=== PATIENT | male | born 1990 | race Caucasian/White ===

== ENCOUNTER 2017-08-26 21:25 | Emergency (ER) | payer SELFPAY ==
[2017-08-26 21:31] VITALS: RESP 18
--- NOTE | 2017-08-26 22:50 | ED ---
Chest Pain HPI - General Chief Complaint: Chest Pain Stated Complaint: Chest Pain Time Seen by Provider: 08/26/17 22:02 Source: patient, family Mode of arrival: ambulatory Limitations: no limitations - History of Present Illness Initial Comments: This patient is a 27-year-old man who states that Sunday in the afternoon he had the onset of pain in the left side of his chest. 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 The patient denied any inciting injury. 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 The patient describes it as a shooting pain. It was moderate to severe, though it has decreased to mild now. The patient denies any associated symptoms. He has not noted any worsening or relieving factors. MD Complaint: chest pain Onset/Timin -: days(s) Onset: other (While driving) Pain Location: left chest Pain Radiation: none Severity: moderate Quality: other Consistency: constant Improves With: nothing Worsens With: nothing Treatments Prior to Arrival: none - Related Data Home Medications Medication Instructions Recorded Confirmed No Known Home Medications [No 08/26/17 08/26/17 Known Home Medications] Allergies Allergy/AdvReac Type Severity Reaction Status Date / Time No Known Allergies Allergy Verified 08/26/17 22:19 Review of Systems ROS Statement: Those systems with pertinent positive or pertinent negative responses have been documented in the HPI. ROS Other: All systems not noted in ROS Statement are negative. Constitutional: Denies: fever, chills Respiratory: Denies: cough, dyspnea Cardiovascular: Reports: chest pain. Denies: palpitations, dyspnea on exertion , edema, syncope Gastrointestinal: Denies: abdominal pain, nausea, vomiting Musculoskeletal: Denies: back pain Skin: Denies: rash Neurological: Denies: headache, weakness, numbness EKG Findings - EKG Results: EKG: interpreted by ERMD, sinus rhythm, normal axis, normal QRS, normal ST/T EKG shows: bradycardia (Rate approximately 57 bpm) - PR, Pacemaker, Normal: Normal tracing: normal tracing Past Medical History Past Medical History: No Reported History History of Any Multi-Drug Resistant Organisms: None Reported Past Surgical History: No Surgical Hx Reported Past Psychological History: No Psychological Hx Reported Smoking Status: Never smoker Past Alcohol Use History: Occasional Past Drug Use History: None Reported General Exam Limitations: no limitations General appearance: alert, in no apparent distress Head exam: Present: atraumatic, normocephalic Eye exam: Present: normal appearance. Absent: scleral icterus, conjunctival injection ENT exam: Present: normal oropharynx Neck exam: Present: normal inspection, full ROM Respiratory exam: Present: normal lung sounds bilaterally, chest wall tenderness. Absent: respiratory distress, wheezes, rales, rhonchi, stridor Cardiovascular Exam: Present: regular rate, normal rhythm, normal heart sounds. Absent: systolic murmur, diastolic murmur, rubs, gallop GI/Abdominal exam: Present: soft. Absent: distended, tenderness, guarding, rebound, mass Extremities exam: Present: normal inspection, normal capillary refill. Absent: pedal edema, calf tenderness Back exam: Absent: CVA tenderness (R), CVA tenderness (L), vertebral tenderness Neurological exam: Present: alert Skin exam: Present: warm, dry, intact, normal color. Absent: rash Course Vital Signs 08/26/17 08/26/17 21:28 22:41 Temperature 97.6 F Pulse Rate 54 L 70 Respiratory 18 18 Rate Blood Pressure 134/84 133/75 O2 Sat by Pulse 99 98 Oximetry Disposition Clinical Impression: Chest wall pain Disposition: HOME SELF-CARE Condition: Good Instructions: Chest Pain (ED) Referrals: None,Stated [Primary Care Provider] - 1-2 days
[2017-08-26 23:04] LABS: Basophils # (A) 0.1 k/uL (0-0.2); Basophils % (A) 1 %; CH 29.9; CHCM 33.9; Eosinophils # (A) 0.2 k/uL (0-0.7); Eosinophils % (A) 2 %; HCT 44.6 % (39.0-53.0); HDW 2.62; HGB 15.3 gm/dL (13.0-17.5); Luc % (Auto) 4; Lymphocytes # (A) 2.7 k/uL (1.0-4.8); Lymphocytes % (A) 32 %; MCH 30.4 pg (25.0-35.0); MCHC 34.3 g/dL (31.0-37.0); MCV 88.7 fL (80.0-100.0); Mean Platelet Volume 7.9; Monocytes # (A) 0.4 k/uL (0-1.0); Monocytes % (A) 5 %; Neutrophils # (A) 4.8 k/uL (1.3-7.7); Neutrophils % (A) 57 %; RBC 5.03 m/uL (4.30-5.90); RDW 12.3 % (11.5-15.5); WBC 8.4 k/uL (3.8-10.6); WBC (Perox) 8.41
[2017-08-26 23:19] LABS: ALT 36 U/L (21-72); AST 22 U/L (17-59); Alkaline Phosphatase 68 U/L (38-126); Anion Gap 13 mmol/L; Blood Urea Nitrogen 19 mg/dL (9-20); Calcium 9.4 mg/dL (8.4-10.2); Carbon Dioxide 23 mmol/L (22-30); Chloride 107 mmol/L (98-107); Glucose 97 mg/dL (74-99); Magnesium 1.8 mg/dL (1.6-2.3); Non-African American GFR(MDRD) >60 (>60 ml/min/1.73 sqM); Potassium 4.5 mmol/L (3.5-5.1); Sodium 143 mmol/L (137-145); Total Bilirubin 0.3 mg/dL (0.2-1.3); Total Protein 7.3 g/dL (6.3-8.2)
[2017-08-26 23:23] LABS: INR 1.1 (<1.2); Partial Thromboplastin Time 27.1 sec (22.0-30.0); Prothrombin Time 10.8 sec (9.0-12.0)
--- NOTE | 2017-08-26 23:29 | XR ---
EXAM: XR Chest, 2 Views CLINICAL HISTORY: Chest pain. TECHNIQUE: Frontal and lateral views of the chest. COMPARISON: No relevant prior studies available. FINDINGS: Lungs: No focal consolidation. No evidence of pulmonary edema. Pleural space: No pleural effusion. No pneumothorax. Heart: Unremarkable. No cardiomegaly. Mediastinum: Unremarkable. Bones/joints: Unremarkable. IMPRESSION: No radiographic evidence of acute cardiopulmonary process.
[2017-08-27 00:09] VITALS: BP 124/68; PULSE 78; TEMP 97
== END 2017-08-27 00:08 | disposition home or self-care (01) ==
LOC: EC 21:25
DX: R07.89 Other chest pain (principal)
CPT/HCPCS: 36415; 71020; 80053; 83735; 84484; 85025; 85379; 85610; 85730; 93005; 99285

== ENCOUNTER 2020-11-10 16:50 | Emergency (ER) | payer BC ==
[2020-11-10 17:07] VITALS: RESP 18
--- NOTE | 2020-11-10 17:39 | XR ---
EXAMINATION TYPE: XR ankle complete RT DATE OF EXAM: 11/10/2020 COMPARISON: NONE HISTORY: Ankle pain TECHNIQUE: 3 views FINDINGS: There is mild soft tissue swelling around the ankle joint. I see no fracture nor dislocatio n. Joint spaces are normal. IMPRESSION: Mild soft tissue swelling. No fracture.
--- NOTE | 2020-11-10 17:40 | XR ---
EXAMINATION TYPE: XR foot complete RT DATE OF EXAM: 11/10/2020 COMPARISON: NONE HISTORY: Pain TECHNIQUE: 3 views FINDINGS: Metatarsals are intact. I see no fracture nor dislocation. Joint spaces are normal. There a re no erosions. IMPRESSION: No fracture.
--- NOTE | 2020-11-10 18:30 | ED ---
Lower Extremity Injury HPI - General Chief Complaint: Extremity Injury, Lower Stated Complaint: rt ankle injury Time Seen by Provider: 11/10/20 18:21 Source: patient Mode of arrival: ambulatory Limitations: no limitations - History of Present Illness Initial Comments: 30-year-old male presenting to emergency Department with chief complaint of right ankle pain. Patient reports he injured about 3 weeks ago and has been gradually increasing severity. This report mild swelling but no ecchymosis. Denies any numbness or tingling. States the pain is exacerbated with inhalation. Alleviate at rest. - Related Data Home Medications Medication Instructions Recorded Confirmed No Known Home Medications 08/26/17 09/22/17 Allergies Allergy/AdvReac Type Severity Reaction Status Date / Time No Known Allergies Allergy Verified 11/10/20 17:04 Review of Systems ROS Statement: Those systems with pertinent positive or pertinent negative responses have been documented in the HPI. ROS Other: All systems not noted in ROS Statement are negative. Past Medical History Past Medical History: No Reported History History of Any Multi-Drug Resistant Organisms: None Reported Past Surgical History: No Surgical Hx Reported Past Psychological History: No Psychological Hx Reported Smoking Status: Never smoker Past Alcohol Use History: Occasional Past Drug Use History: None Reported General Exam Limitations: no limitations General appearance: alert, in no apparent distress, obese Head exam: Present: atraumatic, normocephalic, normal inspection Eye exam: Present: normal appearance, PERRL, EOMI Pupils: Present: normal accommodation ENT exam: Present: normal exam, normal oropharynx, mucous membranes moist, TM's normal bilaterally, normal external ear exam Neck exam: Present: normal inspection, full ROM. Absent: lymphadenopathy Respiratory exam: Present: normal lung sounds bilaterally Cardiovascular Exam: Present: regular rate, normal rhythm, normal heart sounds GI/Abdominal exam: Present: soft. Absent: distended, tenderness Extremities exam: Present: normal inspection (Mild swelling on the right ankle), full ROM, tenderness (Lateral malleoli tenderness), normal capillary refill, other (+2 dorsalis pedis and posterior tibialis laterally.). Absent: pedal edema, joint swelling, calf tenderness Back exam: Present: normal inspection, full ROM Neurological exam: Present: alert, oriented X3 Psychiatric exam: Present: normal affect, normal mood Skin exam: Present: warm, dry, intact, normal color Course Vital Signs 11/10/20 17:06 Temperature 98.2 F Pulse Rate 82 Respiratory 18 Rate Blood Pressure 126/75 O2 Sat by Pulse 97 Oximetry Procedures - Orthopedic Splinting/Casting Injury #1 Side: right Upper Extremity Immobilizer: Facundo wrap Lower Extremity Injury Location: ankle Medical Decision Making - Medical Decision Making 30-year-old male presenting to the emergency department with a chief complaint right ankle pain. Physical examination is unremarkable except for mild swelling along the lateral malleoli along with some tenderness there. No ecchymosis. Neurovascularly intact. X-rays of foot and ankle are negative. Patient was advised to rest, ice, compress and elevate. He will be in contact information for email marketing specialist. Return parameters discussed. Case discussed physician. Disposition Clinical Impression: Right ankle sprain Disposition: HOME SELF-CARE Condition: Stable Instructions (If sedation given, give patient instructions): Ankle Sprain (ED) Additional Instructions: Follow-up with email marketing specialist. Return to emergency department if symptoms worsen. Is patient prescribed a controlled substance at d/c from ED?: No Referrals: None,Stated [Primary Care Provider] - 1-2 days Jayden Lang DO [Doctor of Osteopathic Medicine] - 1-2 days Time of Disposition: 18:29
[2020-11-10 18:48] VITALS: BP 132/65; PULSE 77; TEMP 98.1
== END 2020-11-10 18:35 | disposition home or self-care (01) ==
LOC: EC 16:50
DX: S93.401A Sprain of unspecified ligament of right ankle, initial encounter (principal); X58.XXXA Exposure to other specified factors, initial encounter
CPT/HCPCS: 99283

== ENCOUNTER 2022-02-16 12:47 | Emergency (ER) | payer OTHER ==
[2022-02-16] MEDS ORDERED: SODIUM CHLORIDE 0.9% 1,000 ML IV STA (13:15)
[2022-02-16] MEDS ORDERED: MORPHINE SULFATE 2 MG/ML SYRINGE IVP STA (13:15)
--- NOTE | 2022-02-16 13:20 | ED ---
General Adult HPI - General Chief complaint: Abdominal Pain Stated complaint: abd pain/back pain Time Seen by Provider: 02/16/22 13:10 Source: patient, RN notes reviewed, old records reviewed Mode of arrival: ambulatory Limitations: no limitations - History of Present Illness Initial comments: Well-appearing 31-year-old male presents ambulatory with complaints of cramping abdominal pain that started yesterday. States he did have normal bowel movement yesterday. Denies any nausea vomiting diarrhea or fevers. States today pain came back and was sharp in nature and has not been able to get comfortable since. He denies dysuria or penile discharge. No medical history, no medicines on a daily basis and he is a nonsmoker. -: days(s) (2) Location: abdomen Radiation: periumbilical Severity scale (1-10): 7 Quality: sharp Consistency: intermittent Improves with: none Worsens with: other (palpation) Associated Symptoms: denies other symptoms - Related Data Previous Rx's Medication Instructions Recorded Amoxicillin/Potassium Clav 1 tab PO Q12HR #20 tab 02/16/22 [Augmentin 875-125 Tablet] Allergies Allergy/AdvReac Type Severity Reaction Status Date / Time No Known Allergies Allergy Verified 02/16/22 14:17 Review of Systems ROS Statement: Those systems with pertinent positive or pertinent negative responses have been documented in the HPI. ROS Other: All systems not noted in ROS Statement are negative. Past Medical History Past Medical History: No Reported History History of Any Multi-Drug Resistant Organisms: None Reported Past Surgical History: No Surgical Hx Reported Past Psychological History: No Psychological Hx Reported Smoking Status: Never smoker Past Alcohol Use History: Occasional Past Drug Use History: None Reported General Exam Limitations: no limitations General appearance: alert, in no apparent distress Head exam: Present: atraumatic, normocephalic, normal inspection Eye exam: Present: normal appearance Neck exam: Present: normal inspection, full ROM Respiratory exam: Present: normal lung sounds bilaterally. Absent: respiratory distress, wheezes, rales, rhonchi, stridor, chest wall tenderness, accessory muscle use Cardiovascular Exam: Present: regular rate, normal rhythm. Absent: JVD GI/Abdominal exam: Present: soft, tenderness (periumbilical), normal bowel sounds. Absent: distended, guarding, rebound, rigid Extremities exam: Present: normal capillary refill. Absent: pedal edema Back exam: Present: normal inspection, full ROM. Absent: tenderness, CVA tenderness (R), CVA tenderness (L), rash noted Neurological exam: Present: alert, oriented X3, normal gait Psychiatric exam: Present: normal affect, normal mood Skin exam: Present: warm, dry, intact, normal color. Absent: cyanosis, diapho retic, pallor Course Vital Signs 02/16/22 02/16/22 13:03 16:37 Temperature 97.8 F 98 F Pulse Rate 74 80 Respiratory 20 18 Rate Blood Pressure 124/82 134/78 O2 Sat by Pulse 99 98 Oximetry Medical Decision Making - Medical Decision Making 31-year-old male presents with complaints of abdominal pain that started yesterday. Denies any nausea vomiting diarrhea or fevers. White blood cell count 10.5 hemoglobin and hematocrit are stable and electrolytes are unremarkable, urinalysis is clear. CT shows acute diverticulitis involving most proximal portion of the sigmoid colon. There is no definitive abscess. There is bilateral fat-containing inguinal hernias with a small fat-containing umbilical hernia. Case discussed with Dr Berrios. Patient will be discharged on Augmentin for diverticulitis and directed to follow up with his primary care doctor. He was also informed of his umbilical and bilateral inguinal hernias which he can discuss continuation of care with his primary care doctor. Instructed to return to the emergency room with any new or concerning symptoms including increased pain, persistent nausea and vomiting or inability to pass rectal gas. - Lab Data Result diagrams: 02/16/22 13:50 02/16/22 13:50 Lab Results 02/16/22 02/16/22 02/16/22 Range/Units 13:34 13:50 13:50 WBC 10.5 (3.8-10.6) k/uL RBC 5.01 (4.30-5.90) m/uL Hgb 15.4 (13.0-17.5) gm/dL Hct 44.1 (39.0-53.0) % MCV 87.9 (80.0-100.0) fL MCH 30.8 (25.0-35.0) pg MCHC 35.0 (31.0-37.0) g/dL RDW 12.6 (11.5-15.5) % Plt Count 241 (150-450) k/uL MPV 9.1 Neutrophils % 69 % Lymphocytes % 18 % Monocytes % 5 % Eosinophils % 5 % Basophils % 1 % Neutrophils # 7.2 (1.3-7.7) k/uL Lymphocytes # 1.9 (1.0-4.8) k/uL Monocytes # 0.5 (0-1.0) k/uL Eosinophils # 0.5 (0-0.7) k/uL Basophils # 0.1 (0-0.2) k/uL PT 10.9 (9.0-12.0) sec INR 1.0 (<1.2) APTT 26.4 (22.0-30.0) sec Sodium (137-145) mmol/L Potassium (3.5-5.1) mmol/L Chloride (98-107) mmol/L Carbon Dioxide (22-30) mmol/L Anion Gap mmol/L BUN (9-20) mg/dL Creatinine (0.66-1.25) mg/dL Est GFR (CKD-EPI)AfAm (>60 ml/min/1.73 sqM) Est GFR (CKD-EPI)NonAf (>60 ml/min/1.73 sqM) Glucose (74-99) mg/dL Plasma Lactic Acid Erwin (0.7-2.0) mmol/L Calcium (8.4-10.2) mg/dL Total Bilirubin (0.2-1.3) mg/dL AST (17-59) U/L ALT (4-49) U/L Alkaline Phosphatase (38-126) U/L Total Protein (6.3-8.2) g/dL Albumin (3.5-5.0) g/dL Amylase (30-110) U/L Lipase (23-300) U/L Urine Color Light Yellow Urine Appearance Clear (Clear) Urine pH 5.0 (5.0-8.0) Ur Specific Talcott 1.007 (1.001-1.035) Urine Protein Negative (Negative) Urine Glucose (UA) Negative (Negative) Urine Ketones Negative (Negative) Urine Blood Negative (Negative) Urine Nitrite Negative (Negative) Urine Bilirubin Negative (Negative) Urine Urobilinogen <2.0 (<2.0) mg/dL Ur Leukocyte Esterase Negative (Negative) 02/16/22 02/16/22 Range/Units 13:50 13:50 WBC (3.8-10.6) k/uL RBC (4.30-5.90) m/uL Hgb (13.0-17.5) gm/dL Hct (39.0-53.0) % MCV (80.0-100.0) fL MCH (25.0-35.0) pg MCHC (31.0-37.0) g/dL RDW (11.5-15.5) % Plt Count (150-450) k/uL MPV Neutrophils % % Lymphocytes % % Monocytes % % Eosinophils % % Basophils % % Neutrophils # (1.3-7.7) k/uL Lymphocytes # (1.0-4.8) k/uL Monocytes # (0-1.0) k/uL Eosinophils # (0-0.7) k/uL Basophils # (0-0.2) k/uL PT (9.0-12.0) sec INR (<1.2) APTT (22.0-30.0) sec Sodium 136 L (137-145) mmol/L Potassium 4.9 (3.5-5.1) mmol/L Chloride 106 (98-107) mmol/L Carbon Dioxide 20 L (22-30) mmol/L Anion Gap 10 mmol/L BUN 16 (9-20) mg/dL Creatinine 0.71 (0.66-1.25) mg/dL Est GFR (CKD-EPI)AfAm >90 (>60 ml/min/1.73 sqM) Est GFR (CKD-EPI)NonAf >90 (>60 ml/min/1.73 sqM) Glucose 94 (74-99) mg/dL Plasma Lactic Acid Erwin 0.8 (0.7-2.0) mmol/L Calcium 9.0 (8.4-10.2) mg/dL Total Bilirubin 1.2 (0.2-1.3) mg/dL AST 40 (17-59) U/L ALT 30 (4-49) U/L Alkaline Phosphatase 50 (38-126) U/L Total Protein 7.9 (6.3-8.2) g/dL Albumin 4.6 (3.5-5.0) g/dL Amylase 61 (30-110) U/L Lipase 53 (23-300) U/L Urine Color Urine Appearance (Clear) Urine pH (5.0-8.0) Ur Specific Talcott (1.001-1.035) Urine Protein (Negative) Urine Glucose (UA) (Negative) Urine Ketones (Negative) Urine Blood (Negative) Urine Nitrite (Negative) Urine Bilirubin (Negative) Urine Urobilinogen (<2.0) mg/dL Ur Leukocyte Esterase (Negative) Disposition Clinical Impression: Diverticulitis, Umbilical hernia, Inguinal hernia Disposition: HOME SELF-CARE Condition: Good Instructions (If sedation given, give patient instructions): Diverticulitis (ED), Umbilical Hernia (ED) Additional Instructions: Take antibiotics as prescribed and follow-up with the primary care doctor next week. Return to the emergency room with any new or concerning symptoms including increased pain, fevers or persistent nausea and vomiting. Prescriptions: Amoxicillin/Potassium Clav [Augmentin 875-125 Tablet] 1 tab PO Q12HR #20 tab Is patient prescribed a controlled substance at d/c from ED?: No Referrals: None,Stated [Primary Care Provider] - 1-2 days Time of Disposition: 16:10
[2022-02-16 13:46] LABS: Appearance,Urine Clear (Clear); Bilirubin,Urine Negative (Negative); Blood,Urine Negative (Negative); Color,Urine Light Yellow; Glucose,Urine (UA) Negative (Negative); Ketones,Urine Negative (Negative); Leukocyte Esterase,Urine Negative (Negative); Nitrite,Urine Negative (Negative); Protein,Urine Negative (Negative); Specific Gravity,Urine 1.007 (1.001-1.035); Urobilinogen,Urine <2.0 mg/dL (<2.0)
[2022-02-16 14:02] LABS: Basophils # (A) 0.1 k/uL (0-0.2); Basophils % (A) 1 %; Eosinophils # (A) 0.5 k/uL (0-0.7); Eosinophils % (A) 5 %; HCT 44.1 % (39.0-53.0); HGB 15.4 gm/dL (13.0-17.5); Lymphocytes # (A) 1.9 k/uL (1.0-4.8); Lymphocytes % (A) 18 %; MCH 30.8 pg (25.0-35.0); MCV 87.9 fL (80.0-100.0); Mean Platelet Volume 9.1; Monocytes # (A) 0.5 k/uL (0-1.0); Monocytes % (A) 5 %; Neutrophils # (A) 7.2 k/uL (1.3-7.7); Neutrophils % (A) 69 %; Platelet Count 241 k/uL (150-450); RBC 5.01 m/uL (4.30-5.90); RDW 12.6 % (11.5-15.5); WBC 10.5 k/uL (3.8-10.6)
[2022-02-16 14:21] LABS: Partial Thromboplastin Time 26.4 sec (22.0-30.0); Prothrombin Time 10.9 sec (9.0-12.0)
[2022-02-16 14:25] LABS: ALT 30 U/L (4-49); African American GFR (CKD) >90 (>60 ml/min/1.73 sqM); Amylase 61 U/L (30-110); Anion Gap 10 mmol/L; Blood Urea Nitrogen 16 mg/dL (9-20); Carbon Dioxide 20 mmol/L (22-30); Chloride 106 mmol/L (98-107); Glucose 94 mg/dL (74-99); Lipase 53 U/L (23-300); Non-African American GFR(CKD) >90 (>60 ml/min/1.73 sqM); Sodium 136 mmol/L (137-145); Total Bilirubin 1.2 mg/dL (0.2-1.3)
[2022-02-16 14:28] LABS: AST 40 U/L (17-59); Albumin 4.6 g/dL (3.5-5.0); Alkaline Phosphatase 50 U/L (38-126); Potassium 4.9 mmol/L (3.5-5.1); Total Protein 7.9 g/dL (6.3-8.2)
--- NOTE | 2022-02-16 15:47 | CT ---
EXAMINATION TYPE: CT abdomen pelvis w con DATE OF EXAM: 02/16/2022 COMPARISON: None available HISTORY: Generalized abdominal pain. CT DLP: 1432.2 mGycm Automated exposure control for dose reduction was used. TECHNIQUE: Helical acquisition of images was performed from the lung bases through the pelvis. CONTRAST: Performed without Oral Contrast and with IV Contrast, patient injected with 100ml mL of Isovue 300. FINDINGS: LUNG BASES: No significant abnormality is appreciated. LIVER/GB: No significant abnormality is appreciated. PANCREAS: No significant abnormality is seen. SPLEEN: No significant abnormality is seen. ADRENALS: No significant abnormality is seen. KIDNEYS: No significant abnormality is seen. FREE AIR: No free air is visualized. RETROPERITONEAL ADENOPATHY: No pathologically enlarged REPRODUCTIVE ORGANS: No significant abnormality is seen URINARY BLADDER: No significant abnormality is seen. PELVIC ADENOPATHY: No pathologically enlarged OSSEOUS STRUCTURES: No aggressive bone lesion. BOWEL: Mild acute diverticulitis involving the most proximal portion of the sigmoid colon without si gns of perforation or abscess formation. Other scattered colonic diverticulosis. Unremarkable stomach and duodenum. Elongated hyperdensity is seen in one of the distal small bowel loops without evidence of bowel obstruction, possibly representing chronic retained contrast versus calcification. Unremark able small bowel otherwise. Normal appendix. OTHER: Bilateral fat-containing inguinal hernias with small fat-containing umbilical hernia. No sizab le ascites. Slightly prominent subcentimeter mesenteric lymph nodes, nonspecific. IMPRESSION: ACUTE DIVERTICULITIS INVOLVING THE MOST PROXIMAL PORTION OF THE SIGMOID COLON DESCRIBED ABOVE. NO SIGNS OF PERFORATION OR DEFINITE ABSCESS FORMATION. INCIDENTAL FINDINGS DESCRIBED ABOVE.
[2022-02-16] MEDS ORDERED: AMOXIC-POT CLAV 875-125MG 1 EACH TAB PO STA (16:13)
[2022-02-16 16:38] VITALS: BP 134/78; PULSE 80; RESP 18; TEMP 98
== END 2022-02-16 16:54 | disposition home or self-care (01) ==
LOC: EC 12:47
DX: K57.32 Diverticulitis of large intestine without perforation or abscess without bleeding (principal); K42.9 Umbilical hernia without obstruction or gangrene; K40.20 Bilateral inguinal hernia, without obstruction or gangrene, not specified as recurrent
CPT/HCPCS: 36415; 80053; 82150; 83605; 83690; 85025; 85610; 85730; 81003; 74177; 99284; 96374; J2270; Q9967